=== PATIENT | male | born 1945 | race Caucasian/White ===

== ENCOUNTER 2018-03-05 19:48 | Emergency (ER) | payer MEDICARE ==
[2018-03-05] MEDS ORDERED: Iodixanol* (CONTRAST) 320 MG/ML 100 ML SDV IV ONE (19:56)
--- NOTE | 2018-03-05 19:56 | ED ---
Neurological HPI - HPI Summary HPI Summary: Pt is a 73 y/o M BIBA presenting with stroke-like symptoms onset 1904. Per EMS, at 1905, pt had onset facial droop. Pt also with gaze deviation and goran- neglect. Per : they were having dinner at 1700, when pt was suddenly slumped in his chair, drooling, with L-sided UE and LE weakness. She is unsure if pt has PMHx: HTN or takes HTN medication. She doesnt think hes on blood thinners. Pt denies pain at bedside. Endoscopy last week. BP: 175/102 at bedside. Daughter is an RN at [employer]. PMHx includes: prostate CA, COPD, former alcoholic, cirrhosis. Pt met immediately upon arrival at charge desk at 1947, briefly evaluated and sent to imaging. - History of Current Complaint Stated Complaint: CODE [place]ERS Last Known Well Date: 03/05/18 Hx Obtained From: Family/Student Financial Aid Manager, EMS Onset/Duration: Sudden Onset, Started minutes ago, Still Present Timing: Constant Onset Severity: Severe Current Severity: Severe Neurological Deficit Location: Facial - L-sided droop Character: Motor Weakness - L-side UE/LE Associated Signs and Symptoms: Positive: Weakness - L-sided, full body - Additional Pertinent History Primary Care Physician: [id number] - Allergy/Home Medications Allergies/Adverse Reactions: Allergies Allergy/AdvReac Type Severity Reaction Status Date / Time MS Penicillins [Penicillins] Allergy Hives Verified 02/24/18 14:57 PMH/Surg Hx/FS Hx/Imm Hx Previously Healthy: No Endocrine/Hematology History: Denies: Hx Diabetes Cardiovascular History: Denies: Hx Angina, Hx Pacemaker/ICD Respiratory History: Reports: Hx Chronic Bronchitis Denies: Hx Asthma, Hx Chronic Obstructive Pulmonary Disease (COPD) GI History: Reports: Hx Gastroesophageal Reflux Disease History: Reports: Hx Benign Prostatic Hyperplasia - Prostate cancer Sensory History: Reports: Hx Contacts or Glasses Denies: Hx Hearing Aid Opthamlomology History: Reports: Hx Contacts or Glasses Psychiatric History: Denies: Hx Panic Disorder - Cancer History Cancer Type, Location and Year: PROSTATE CA FINISHED RADIATION 05/2015 - Surgical History Surgery Procedure, Year, and Place: appendix when 6 years old; umbilical hernia - Family History Known Family History: Positive: Other - Breast CA - Social History Occupation: Employed Part-time Lives: With Family Alcohol Use: None Hx Substance Use: No Substance Use Type: Reports: None Hx Tobacco Use: Yes - QUIT 2001 Smoking Status (MU): Former Smoker Review of Systems Positive: Other - pos: drooling. Negative: Fever, Chills Positive: Other - gaze deviation. Negative: Erythema Negative: Sore Throat Negative: Chest Pain Negative: Shortness Of Breath, Cough Negative: Abdominal Pain, Vomiting, Nausea Negative: dysuria, hematuria Negative: Myalgia, Edema Negative: Rash Neurological: Other - neg: dizziness Positive: Weakness - L-sided UE and LE; L-sided facial droop All Other Systems Reviewed And Are Negative: Yes Physical Exam - Summary Physical Exam Summary: Constitutional: Well-developed, Well-nourished, Alert. (-) Distressed Skin: Warm, Dry HENT: Normocephalic; Atraumatic Eyes: Conjunctiva normal; gaze deviation to Right Neck: Musculoskeletal ROM normal neck. (-) JVD, (-) Stridor, (-) Tracheal deviation Cardio: Irregularly irregular rhythm, rate normal, Heart sounds normal; Intact distal pulses; The pedal pulses are 2+ and symmetric. Radial pulses are 2+ and symmetric. (-) Murmur Pulmonary/Chest wall: Effort normal. (-) Respiratory distress, (-) Wheezes, (-) Rales Abd: Soft. (-) Tenderness, (-) Distension, (-) Guarding, (-) Rebound Musculoskeletal: (-) Edema Lymph: (-) Cervical adenopathy Neuro: Alert, Oriented x3, L-side goran neglect; gaze deviation to Right; LUE unable to overcome gravity, weak dish up person, LLE is able to hold against gravity for 10 seconds, L-side lower facial droop, dysarthria. Psych: Mood and affect Normal GCS: 15 Triage Information Reviewed: Yes Vital Signs Reviewed: Yes - Benedict Coma Scale Best Eye Response: 4 - Spontaneous Best Motor Response: 6 - Obeys Commands Best Verbal Response: 5 - Oriented Coma Scale Total: 15 Diagnostics - Laboratory Result Diagrams: 03/05/18 20:02 03/05/18 20:02 Lab Statement: Any lab studies that have been ordered have been reviewed, and results considered in the medical decision making process. - Radiology CXR Summary of Radiographic Findings: Pending official report. - CT BRAIN CT CT Interpretation Completed By: Radiologist Summary of CT Findings: IMPRESSION: No acute intracranial findings. Aspect score equals 10. ED provider has reviewed this report. This report is only to be considered final once signed by the Provider(s) as displayed in the "< Electronically Signed by >" field (s). Absence of a. signature indicates the report is in a draft status and still needs to be finalized. In the event this document was created by someone other than the. signing Provider, the individual initiating the document will be listed in the "Entered by:" or "Dictated by:" collado. 2 of [address] Findings: Pending official report. NIH Scale - NIH Scale Level of Consciousness: Alert/Keenly Responsive Ask Patient the Month and His/Her Age: Both Correct Ask Pt to Open/Close Eyes and Superintendent Institution/Release Non-Paretic Hand: Both Correctly Best Gaze (Only Horizontal Eye Movement): Partial Gaze Palsy Visual Field Testing: Bilateral Hemianopia Facial Paresis-Pt to Smile & Close Eyes or Grimace Symmetry: Partial Paralysis Motor Function - Right Arm: No Drift-Holds 10 Seconds Motor Function - Left Arm: No Effort Against Golden Motor Function - Right Leg: No Drift-Holds 10 Seconds Motor Function - Left Leg: No Drift-Holds 10 Seconds Limb Ataxia-Must be out of Proportion to Weakness Present: Present in One Limb Sensory (Use Pinprick to Test Arms/Legs/Trunk/Face): Normal Best Language (Describe Picture, Name Items): No Aphasia Dysarthria (Read Several Words): Slurs Some Words Extinction and Inattention: Profound Goran-Inattention Total Score: 13 Re-Evaluation - Re-Evaluation First Eval Re-Evaluation Time: 20:45 Change: Improved Course/Dx - Course Course Of Treatment: Pt is a 73 y/o M BIBA presenting with stroke-like symptoms onset 1904. Pt met immediately upon arrival at charge desk at 1947. Pt shows signs of L-sided facial droop, L-sided weakness. Brain CT shows: No acute intracranial findings. 2009: Consult with Dr. Caldwell, neuro, at [facility]. Based on pt presentation, and no obvious TPA contraindications, he recommends TPA. BP is 175 systolic at time of decision- making. Discussed at length with pt and family risk and benefits of TPA. Pt agrees to TPA treatment. TPA completed at 2024. 2024: Telestroke in progress. Dr. Caldwell, neuro at [place], confirms large vessel occlusion. Will fly pt to [place]. After TPA, pt's speech is improving, his LUE strength is improving. - Diagnoses Provider Diagnoses: Cerebrovascular accident (CVA) involving large vessel During the Visit The Following Alert/Code Occurred: Code Buchanan - 1934 - Critical Care Time Critical Care Time: 30-74 min - 56 min Discharge - Sign-Out/Discharge Documenting (check all that apply): Patient Departure - TRANS - medina - Discharge Plan Condition: Fair Disposition: TRANS HIGHER LVL OF CARE FAC Referrals: Virginia Calero MD [Primary Care Provider] - - Billing Disposition and Condition Condition: FAIR Disposition: Trans Higher Lvl of Care Fac - Attestation Statements Document Initiated by Scribe: Yes Documenting Scribe: Yokasta Roth Provider For Whom Scribe is Documenting (Include Credential): Dr. Rojelio Berry MD Scribe Attestation: I, Yokasta Roth, scribed for Dr. Rojelio Berry MD on 03/05/18 at 2046. Scribe Documentation Reviewed: Yes Provider Attestation: The documentation as recorded by the scribe, Yokasta Roth accurately reflects the service I personally performed and the decisions made by me, Dr. Rojelio Berry MD Consult Consult: 2009: Consult with Dr. Caldwell, neuro, at [facility] Based on pt presentation, and no obvious TPA contraindications, recommends TPA. Do not delay TPA awaiting his consult (imaging unavailable). BP is 175 systolic at time of decision-making. 2033: Dr. Caldwell Confirms large vessel occlusion, wants pt at [place]. Will fly pt.
--- NOTE | 2018-03-05 20:02 | RAD ---
EXAM: CT Head Without Intravenous Contrast EXAM DATE/TIME: 03/05/2018 7:56 PM CLINICAL HISTORY: 73 years old, male; Signs and symptoms; Alteration of consciousness; Stupor; Additional info: Neurological changes/code good TECHNIQUE: Axial computed tomography images of the head/brain without intravenous contrast. All CT scans at this facility use at least one of these dose optimization techniques: automated exposure control; mA and/or kV adjustment per patient size (includes targeted exams where dose is matched to clinical indication); or iterative reconstruction. COMPARISON: No relevant prior studies available. FINDINGS: Limitations: Images at base of the brain are degraded by beam hardening artifact. Brain: No intracranial hemorrhage, mass effect, or extraaxial collection. No significant white matter disease. Good-white differentiation is maintained with no evidence of large territory infarct. Ventricles: Normal configuration. No ventriculomegaly. Bones/joints: No acute fracture. Sinuses: Normal as visualized. No acute sinusitis. Mastoid air cells: No mastoid effusion. Soft tissues: Normal. IMPRESSION: No acute intracranial findings. Aspect score equals 10. The To contact [facility] with a general question: Operations Center - [phone] For direct physician to physician contact: Physician Hotline - [phone] [facility] ([facility] Facility ID #[id number])
[2018-03-05] MEDS ORDERED: Alteplase* 100 MG VIAL IV ONE ×2 (20:08)
[2018-03-05 20:13] LABS: ABS Basophils 0 10^3/ul (0-0.2); ABS Eosinophils 0.2 10^3/ul (0-0.6); ABS Lymphocytes 1.3 10^3/ul (1.0-4.8); ABS Monocytes 0.6 10^3/ul (0-0.8); ABS Neutrophils 3.1 10^3/ul (1.5-7.7); ABS Nucleated RBC 0 10^3/ul; Eosinophil % 2.9 % (0-6); Hematocrit 40 % (42-52); Hemoglobin 14.1 g/dl (14.0-18.0); Mean Corpuscular HGB Conc 36 g/dl (31-36); Mean Corpuscular Hemoglobin 31 pg (27-31); Mean Corpuscular Volume 86 fL (80-94); Mean Platelet Volume 7.5 um3 (7.4-10.4); Nucleated Red Blood Cells % 0.5; Platelet Count 179 10^3/ul (150-450); Red Blood Count 4.64 10^6/ul (4.00-5.40); Red Cell Distribution Width 14 % (10.5-15); White Blood Count 5.2 10^3/ul (3.5-10.8)
[2018-03-05 20:18] LABS: INR 0.89 (0.77-1.02)
[2018-03-05 20:26] LABS: EGFR Non-African American 77.3 (>60)
--- NOTE | 2018-03-05 20:56 | RAD ---
EXAM: CT Angiography Head With Intravenous Contrast EXAM DATE/TIME: 03/05/2018 7:57 PM CLINICAL HISTORY: 73 years old, male; Signs and symptoms; Speech disturbance; Slurred speech; Additional info: L hemiparesis TECHNIQUE: Axial computed tomographic angiography images of the head with intravenous contrast using CT angiography protocol. All CT scans at this facility use at least one of these dose optimization techniques: automated exposure control; mA and/or kV adjustment per patient size (includes targeted exams where dose is matched to clinical indication); or iterative reconstruction. Coronal and sagittal reformatted images were created and reviewed. MIP and 3D reconstructed images were created and reviewed. CONTRAST: 40 ml of VISIPAQUE 320 administered intravenously. COMPARISON: BRAIN WO CT BRAIN WO 03/05/2018 7:55 PM FINDINGS: Right internal carotid artery: There is occlusion of the right internal carotid artery, with reconstitution distally. Right anterior cerebral artery: There is hypoplasia of the A1 segment of the right anterior cerebral artery. Right middle cerebral artery: There is occlusion of the M1 segment of the right middle cerebral artery. Reconstitution of flow is identified within the distal M2 and M3 segments. Right posterior cerebral artery: No occlusion or significant stenosis. No aneurysm. Right vertebral artery: No occlusion or significant stenosis. No aneurysm. There is persistence of the origin of the right posterior cerebral artery Left internal carotid artery: There is approximately 50% stenosis of the left internal carotid artery. Atherosclerotic changes are identified of the internal carotid arteries bilaterally. Left anterior cerebral artery: No occlusion or significant stenosis. No aneurysm. Left middle cerebral artery: No occlusion or significant stenosis. No aneurysm. Left posterior cerebral artery: No occlusion or significant stenosis. No aneurysm. Left vertebral artery: There is atherosclerosis of the left vertebral artery, with less than 50% stenosis. There is decreased enhancement of the distal left vertebral artery, consistent with decreased blood flow. Basilar artery: No occlusion or significant stenosis. No aneurysm. IMPRESSION: 1. 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 Reconstitution of flow is identified within the distal M2 and M3 segments. 2. 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 3. There is approximately 50% stenosis of the left internal carotid artery. 4. There is atherosclerosis of the left vertebral artery, with less than 50% stenosis. There is decreased enhancement of the distal left vertebral artery, continued consistent with decreased blood flow. 5. Additional findings described above. EXAM: CT Angiography Neck With Intravenous Contrast EXAM DATE/TIME: 03/05/2018 7:57 PM CLINICAL HISTORY: 73 years old, male; Signs and symptoms; Speech disturbance; Slurred speech; Additional info: L hemiparesis TECHNIQUE: Axial computed tomographic angiography images of the neck with intravenous contrast using CT angiography protocol. All CT scans at this facility use at least one of these dose optimization techniques: automated exposure control; mA and/or kV adjustment per patient size (includes targeted exams where dose is matched to clinical indication); or iterative reconstruction. Coronal and sagittal reformatted images were created and reviewed. MIP and 3D reconstructed images were created and reviewed. CONTRAST: 40 ml of VISIPAQUE 320 administered intravenously. COMPARISON: BRAIN WO CT BRAIN WO 03/05/2018 7:55 PM FINDINGS: VASCULATURE: Right common carotid artery: No significant stenosis. No dissection or occlusion. Right internal carotid artery: There is tapering and significant mural thrombus within the proximal right internal carotid artery, consistent with dissection. There is occlusion of this vessel more distally. Atherosclerotic changes are identified of the proximal right internal carotid artery. Right external carotid artery: No occlusion or significant stenosis. Right vertebral artery: No significant stenosis. No dissection or occlusion. Left common carotid artery: No significant stenosis. No dissection or occlusion. Left internal carotid artery: There is increased tortuosity of the left internal carotid artery. Mild atherosclerotic changes are identified of the proximal left internal carotid artery, with approximately 20% stenosis. Left external carotid artery: No occlusion or significant stenosis. Left vertebral artery: No significant stenosis. No dissection or occlusion. Aorta: Atherosclerotic changes are identified of the aortic arch. NECK: Bones/joints: Spondylosis is visualized at multiple cervical levels. IMPRESSION: 1. There is tapering and significant mural thrombus within the proximal right internal carotid artery, consistent with dissection. There is occlusion of this vessel more distally. 2. Mild atherosclerotic changes are identified of the proximal left internal carotid artery, with approximately 20% stenosis. 3. Additional findings described above. COMMENT: Degree of carotid stenosis was determined using NASCET or SRU criteria. Mild: <50% stenosis. Moderate: 50-69% stenosis. Severe: 70-94% stenosis. Near occlusion: 95-99% stenosis. Occluded: 100% stenosis. THIS REPORT CONTAINS FINDINGS THAT MAY BE CRITICAL TO PATIENT CARE. The findings were verbally communicated via telephone conference with SCOTTY KING at 8:55 PM EDT on 03/05/2018. The findings were acknowledged and understood. To contact [facility] with a general question: Operations Center - [phone] For direct physician to physician contact: Physician Hotline - [phone] [facility] ([facility] Facility ID #[id number])
[2018-03-05 21:01] VITALS: BP 178/93
--- NOTE | 2018-03-06 07:24 | RAD ---
INDICATION: Neurologic changes, code lorenzo. COMPARISON: Comparison is made with a prior study from October 05, 2015. TECHNIQUE: A portable view of the chest was obtained. FINDINGS: Cardiac and mediastinal contours appear to be within normal limits. The lungs are underinflated and clear. No pleural effusion is seen. IMPRESSION: NO EVIDENCE FOR ACUTE DISEASE. [id number]
== END 2018-03-05 21:00 | disposition short-term general hospital (02) ==
LOC: ED 19:48
DX: I63.9 Cerebral infarction, unspecified (principal); R53.1 Weakness; Z87.891 Personal history of nicotine dependence
CPT/HCPCS: 36415; 70450; 70496; 70498; 71045; 80053; 80061; 83605; 84484; 85025; 85610; 85730; 86850; 86900; 86901; 93005; 96365; 99285; Q9967